=== PATIENT | female | born 1940 | race Caucasian/White ===

== ENCOUNTER 2019-10-24 12:35 | Emergency (ER) | payer MEDICARE ==
[~2019-10-24] VITALS: Ht 154.9 cm; Wt 44.5 kg
--- OUTSIDE RECORDS SUMMARY | ~2019-10-24 | XMS | Encounter Summary ---
Demographics + + + | Address | [address] | | | [place] [address] | + + + | Home Phone | | + + + | Preferred Language | Unknown | + + + | Marital Status | | + + + | Christianity Affiliation | Unknown | + + + | Race | Unknown | + + + | Ethnic Group | Unknown | + + + Author + + + | Author | [facility] | | | and [place] | + + + | Organization | [facility] | | | and [place] | + + + | Address | Unknown | + + + | Phone | Unavailable | + + + Support +------+ +---------+ + | Name | Relationship | Address | Phone | +------+ +---------+ + ECON | Unknown | | +------+ +---------+ + Care Team Providers + +------+ + | Care Splitter Tender Name | Role | Phone | + +------+ + | Keith May | PCP | | | MD | | | + +------+ + Encounter Details +--------+ + + + + | Date | Type | Department | Care Team | Description | +--------+ + + + + | 04/24/ | Imaging | [facility] | Provider, | | | 2018 | Exam | [facility] | MD [address] | | | | | IMAG[address] | [address] | | | | | [address] | [place] [address] | | | | | [place] [address] | | | | | | [phone] | | | +--------+ + + + + Social History + +-------+ +--------+------+ | Tobacco Use | Types | Packs/Day | Years | Date | | | | | Used | | + +-------+ +--------+------+ | Never Assessed | | | | | + +-------+ +--------+------+ + + + | Sex Assigned at | Date Recorded | | | | + + + | Not on file | | + + + + + + + | Job Start Date | Occupation | Industry | + + + + | Not on file | Not on file | Not on file | + + + + + + + + | Travel History | Travel Start | Travel End | + + + + + + | No recent travel history available. | + + documented as of this encounter Plan of Treatment Not on filedocumented as of this encounter Procedures + +--------+ + + + | Procedure Name | Priori | Date/Time | Associated Diagnosis | Comments | | | ty | | | | + +--------+ + + + | XR SHOULDER LEFT 2 + | Routin | 05/17/2015 | | Results for this | | VW | e | 3:20 PM | | procedure are in the | | | | PST | | results section. | + +--------+ + + + documented in this encounter Results XR Shoulder Left 2 + Vw (05/17/2015 3:20 PM PST) + + | Specimen | + + | | + + + + + | Narrative | Performed At | + + + | External films for comparison only | [facility] | | | | | No results will be in the chart. | | + + + + +---------+ + + | Performing | Address | City/State/Zipcode | Phone Number | | Organization | | | | + +---------+ + + | [facility] | | | | + +---------+ + + documented in this encounter Visit Diagnoses Not on filedocumented in this encounter"
--- OUTSIDE RECORDS SUMMARY | ~2019-10-24 | XMS | Encounter Summary ---
Demographics + + + | Address | [address] | | | [place] [address] | + + + | Home Phone | | + + + | Preferred Language | Unknown | + + + | Marital Status | | + + + | Quaker Affiliation | Unknown | + + + | Race | Unknown | + + + | Ethnic Group | Unknown | + + + Author + + + | Author | [facility] | | | and [place] | + + + | Organization | [facility] | | | and [place] | + + + | Address | Unknown | + + + | Phone | Unavailable | + + + Support +------+ +---------+ + | Name | Relationship | Address | Phone | +------+ +---------+ + ECON | Unknown | | +------+ +---------+ + Care Team Providers + +------+ + | Care Spinner Concrete Pipe Name | Role | Phone | + [...] | | | | [address] | [place] [address] | | | | | [place] [address] | | | | | | [phone] | | | +--------+ + + + [...] SHOULDER LEFT 2 + | Routin | 07/19/2011 | | Results for this | | VW | e | 5:20 PM | | procedure are in the | | | | PST | | results section. | + +--------+ + + + documented in this encounter Results XR Shoulder Left 2 + Vw (07/19/2011 5:20 PM PST) + + | Specimen | [...]
--- OUTSIDE RECORDS SUMMARY | ~2019-10-24 | XMS | Encounter Summary ---
Demographics + + + | Address | [address] | | | [place] [address] | + + + | Home Phone | | + + + | Preferred Language | Unknown | + + + | Marital Status | | + + + | Islam Affiliation | Unknown | + + + | Race | Unknown | + + + | Ethnic Group | Unknown | + + + Author + + + | Author | [facility] | | | and [place] | + + + | Organization | [facility] | | | and [place] | + + + | Address | Unknown | + + + | Phone | Unavailable | + + + Support +------+ +---------+ + | Name | Relationship | Address | Phone | +------+ +---------+ + ECON | Unknown | | +------+ +---------+ + Care Team Providers + +------+ + | Care Stockbroker Name | Role | Phone | + +------+ + | Keith May | PCP | | | MD | | | + +------+ + Reason for Referral Evaluate & Treat (Routine) +--------+ + + + + + | Status | Reason | Specialty | Diagnoses / | Referred By | Referred To | | | | | Procedures | Contact | Contact | +--------+ + + + + + | Closed | Specialty | Physical | Diagnoses | Bogdan | [facility] | | | Services | Therapy | Right | Alan | [facility] | | | Required | | rotator cuff | [place], | PHYSICAL | | | | | tear | [address] | | | | | arthropathy | [address] | [place] | | | | | | [place], | [place] | | | | | | [place] | [address] | | | | | | [address] | Phone: | | | | | | Phone: | [phone] | | | | | | [phone] | Fax: | | | | | | Fax: | [phone] | | | | | | [phone] | | +--------+ + + + + + Reason for Visit + + + | Reason | Comments | + + + | New Patient | Right shoulder onset 02/2018 | + + + Evaluate & Treat (Urgent) +--------+--------+ + + + + | Status | Reason | Specialty | Diagnoses / | Referred By | Referred To | | | | | Procedures | Contact | Contact | +--------+--------+ + + + + | Closed | | Orthopedic | Diagnoses | Lalo, | Bogdan, | | | | Surgery | Pain in | Keith | Alan | | | | | right | MD Loyd | MD Arnold | | | | | shoulder | [address] | | | | | | [address] | [address] [place] | | | | | | [place], | [place] | | | | | | [place] | [address] | | | | | | [address] | Phone: | | | | | | Phone: | [phone] | | | | | | [phone] | Fax: | | | | | | Fax: | [phone] | | | | | | [phone] | | +--------+--------+ + + + + Encounter Details +--------+---------+ + + + | Date | Type | Department | Care Team | Description | +--------+---------+ + + + | 05/13/ | Office | [facility] | Alan Mcfadden | Right rotator cuff | | 2018 | Visit | ORTHOPEDIC SURGERY | MD [address] | tear arthropathy | | | | [address] [facility] | [address] | (Primary Dx); Right | | | | [place], [place] | [place] [address] | shoulder pain, | | | | [address] | [phone] | unspecified | | | | [phone] | | chronicity; Fall, | | | | | | initial encounter | +--------+---------+ + + + Social History + +-------+ +--------+------+ | Tobacco Use | Types | Packs/Day | Years | Date | | | | | Used | | + +-------+ +--------+------+ | Never Smoker | | | | | + +-------+ +--------+------+ + +---+---+---+ | Smokeless Tobacco: | | | | | Never Used | | | | + +---+---+---+ + + +---------+ + | Alcohol Use | Drinks/Week | oz/Week | Comments | + + +---------+ + | Yes | | | | + + +---------+ + + + + | Sex Assigned at [...] + + documented as of this encounter Last Filed Vital Signs + + + + + | Vital Sign | Reading | Time Taken | Comments | + + + + + | Blood Pressure | - | - | | + + + + + | Pulse | - | - | | + + + + + | Temperature | - | - | | + + + + + | Respiratory Rate | - | - | | + + + + + | Oxygen Saturation | - | - | | + + + + + | Inhaled Oxygen | - | - | | | Concentration | | | | + + + + + | Weight | 44.9 kg (98 lb 15.8 | 05/13/2018 1:07 PM | | | | oz) | PST | | + + + + + | Height | 152.4 cm (5') | 05/13/2018 1:07 PM | | | | | PST | | + + + + + | Body Mass Index | 19.33 | 05/13/2018 1:07 PM | | | | | PST | | + + + + + documented in this encounter Patient Instructions Patient Instructions Alan Mcfadden MD - 05/13/2018 1:57 PM PSTFormatting of this note m ight be different from the original. Exercises for Shoulder Flexibility: Wall Walk Improving your flexibility can reduce pain. Stretching exercises also can help increase you r range of pain-free motion. Breathe normally when you exercise. Use smooth, fluid movements . Note:Follow any special instructions you are given. If you feel pain, stop the exercise. If the pain continues after stopping, call your healthcare provider: Stand with your shoulder [id number] from the wall. Raise your arm to shoulder level and gently walk your fingers up the wall as high as you can. Hold for a few seconds. Then walk your fingers back down. Repeat 3times. Move closer to the wall as you repeat. Build up to holding each stretch [id number]. Caution:Do this stretch only if your healthcare provider recommends it. Don t do it whe n you are first injured. Date Last Reviewed: 08/15/201719999413-8793 [employer]. [address] [place] [address], [place] [address]. All righ ts reserved. This information is not intended as a substitute for professional medical care. Always follow your healthcare professional's instructions. documented in this encounter Progress Notes Alan Mcfadden MD - 05/13/2018 1:00 PM PSTFormatting of this note might be different fro m the original. [facility] HISTORY AND PHYSICAL EXAMINATION Pt. Name/Age/: Chayo Harris 77 y.o. 1940 Primary Care Physician: Keith May Chief Complaint/Reason for Visit: New Patient (Right shoulder onset 02/2018) History of Present Illness: The patient is a pleasant 77 y.o. female who presents with a 10 week history of right shoul kami pain. Her shoulder pain worsened after a fall. She was having a bird feeder and her ri ght foot stepped into a hole. She fell down a hill. Her right shoulder hurt afterwards. S he knows that she has a chronic rotator cuff tear and has been told so in the past. 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 She is wearing a thumb sp ica splint for this. She reports she drops things all the time but she relates this to a rice nd. She additionally has some puffiness near the elbow that bothers her from time to time. With regards to her shoulder, extension and movement makes the pain worse. Heat and restin g makes her pain better. She states her pain is generally uncomfortable but gets to being a 3-4 out of 10 at its worse. Her pain has been getting better since the fall. She is able to do her normal daily activities carefully and with some limitations. She quit smoking yea rs ago. He does have a history of bilateral pulmonary emboli in the past. Past Medical History: Past Medical History: Diagnosis Date Pulmonary embolus (HCC) Past Surgical History: Procedure Laterality Date HYSTERECTOMY left knee arthroscopy debridement left knee medial meniscectomy open arthrotomy 1979 in [place] Allergies: Allergies Allergen Reactions Codeine Hives Indomethacin Hives Phenobarbital Other (See Comments) Reaction unknown Povidone Iodine Other (See Comments) Unknown Scopolamine Other (See Comments) Unknown Pregabalin Nausea And Vomiting Current Medications: Current Outpatient Prescriptions Medication Sig Dispense Refill albuterol 90 mcg/puff inhaler Inhale 2 puffs into the lungs. aspirin 81 MG tablet Take 81 mg by mouth. BIOTIN PO Take by mouth. Coenzyme Q10 (CO Q 10) 10 MG CAPS Take by mouth. DULoxetine (CYMBALTA) [address] capsule Take 60 mg by mouth. fluticasone (FLOVENT HFA) 220 mcg/puff inhaler Inhale 1 puff into the lungs. Multiple Vitamins-Minerals (WOMENS 50+ MULTI VITAMIN/MIN) TABS Take by mouth. SIMBRINZA 1-0.2 % SUSP No current facility-administered medications for this visit. Family History: History reviewed. No pertinent family history. Social History: Social History Social History Marital status: Spouse name: N/A Number of children: N/A Years of education: N/A Occupational History Not on file. Social History Main Topics Smoking status: Never Smoker Smokeless tobacco: Never Used Alcohol use Yes Drug use: Yes Types: Marijuana Comment: CBD Sexual activity: Not on file Other Topics Concern Not on file Social History Narrative No narrative on file Review of Systems All of these are negative unless otherwise marked Eyes: [] Double vision [x] Glasses/contacts [x] Failing vision Respiratory: [] Asthma/Wheezing [] Pneumonia [x] Night sweats [] Shortness of breath [] Chronic cough [] Coughing up blood [] Exposure to tuberculosis Cardiovascular: [] Heart Problems [] Hypertension [] Heart murmur [] Palpitations [] Rheumatic fever [] Phlebitis [] Chest pain [] Ankle swelling [x] Leg cramps [] Raci ng heart [] Skipping beats [x] Blood clots Urinary Tract: [] Painful urination [] Kidney Stones [] Any urine leakage [] Weak urine stream [] Night urination [] Urine infections [] Bedwetting [] Blood in urine Ear/Nose/Throat: [] Frequent Colds [] Sinus Disease [] Nose obstruction [] Sneezing Spells [] Change in taste [] Artificial teeth [] Ears ringing [] Ear pain [] Hearing loss [] Teeth problems [] Hoarseness [] Neck swelling [] Sore throat [] Congestion [] Nosebleeds [] Nasal allergies Gastrointestinal: [] Abdominal pain [] Heartburn [] Blood from rectum [] Colitis [] Gallbladder problems [] Troubl e swallowing [] Bloated stomach [] Change in stools [] Vomiting blood [] Nausea [] Hemorrhoids [] Jaundice [ ] Hepatitis [] Diarrhea [] Constipation [] Diverticulitis Musculoskeletal: [] Physical handicaps [x] Back or shoulder pain []Rheumatoid disease [x] Osteoarthritis [x] Joint pain [] Joint swelling []Gout [] Leg cramps at night Skin: [] Skin rashes [] Itching/Burning [] Skin bruises easil y [] Artificial tanning [] Skin cancer [x] Hair loss [] Changes in moles Psychiatric: [x] Depression [] Suicidal thoughts [] Sleep pattern changes [] Appetite changes [] Recent counseling [] Nervousness/anxiety [] Physical violence [] Marital problems Neurological: [x] Headaches [] Seizures [] Stroke/TIA [] Faintness [] Tremors [x] Numbness [] Dizziness [x] Changes in handwriting [] Memory loss [x] Shooting pains Endocrine: [] Thyroid [] Diabetes Systemic: []Weight loss/gain (over 10 lbs) []Fever/chills []Fatigue [] Sleeping Difficulties [] Speech change [] Voice change Admission Weight: Weight: 44.9 kg (98 lb 15.8 oz) BMI: Body mass index is 19.33 kg/m . Physical Examination: Ht 1.524 m (5') | Wt 44.9 kg (98 lb 15.8 oz) | BMI 19.33 kg/m General: Alert, oriented, no acute distress HEENT: Normocephalic, atraumatic Cardiovascular: Regular rate and rhythm Respiratory: Breathing normally at a regular rate Ortho Exam Right Shoulder Exam Right Left Forward Flexion 140 150 Abduction 100 120 External Rotation 10 30 Internal rotation L1 T8 Tender to Palpation: globally External Rotation Strength 3/5 Internal Rotation Strength 3/5 Hawkin's Positive Neer's Positive Nolan's Positive Radial pulse 2+. Sensation intact to light touch in the first dorsal webspace, and the pads of the small and index fingers. Able to flex and extend the thumb at the interphalangeal jessica int, make an "ok" sign, adduct and abduct the fingers, and oppose the thumb to the small fin darwin. Diagnostic Studies: Imaging 2 views of the right shoulder obtained today demonstrate rotator cuff tear arthropathy. Th e patient has a moderate inferior humeral head osteophyte. The humeral head is proximally m igrated. It is articulating with the acromion. There is acetabularization of the acromion. MRI of the shoulder dated 03/31/2018 reviewed. The patient has grade 4 fatty atrophy of th e supra spinatus, grade 3 fatty atrophy of the subscapularis, at least grade 2 atrophy of th e infraspinous. Labs- No results found for: NA, K, CL, CO2, ANIONGAP, GLU, BUN, CREA, GFRNONAA, CALCIUM, ALBUMIN, BILITOT, TOTALPROTEIN, AST, ALT, ALKPHOS, WBC, HGB, HCT, MCV, LABPLAT, PLT, ESR, CRP, LIPAS E, AMYLASE, PT, INR Assessment and Plan: 1. Right rotator cuff tear arthropathy 2. Right shoulder pain, unspecified chronicity XR Shoulder Right 2 + Vw 3. Fall, initial encounter The patient is a pleasant 77 y.o. female who presents with right rotator cuff tear arthropa thy. Treatment options were discussed with the patient including non-operative treatment mod alities. Considering the nature of the patient's condition, decision was made to proceed wit h physical therapy. Her pain likely represents an acute exacerbation of her chronic arthrit is and rotator cuff tear. I think physical therapy would give her a decent chance at recove ry of function to her prefall levels. The next treatment step would likely be an injection. She is not interested in surgery. If she were to desire surgery, the correct surgery in m y mind would be a reverse total shoulder replacement. Follow-up: Return in about 2 months (around 07/13/2018). with no x-ray Portions of this report were transcribed using voice recognition software. Every effort wa s made to ensure accuracy; however, inadvertent computerized ledge man errors may be pre sent. I appreciate the opportunity to help with the management of this patient. Alan Mcfadden MD [facility] umented in this encounter Plan of Treatment + + +--------+ + + | Name | Type | Priori | Associated Diagnoses | Order Schedule | | | | ty | | | + + +--------+ + + | Physical Therapy - | Outpatient | Routin | Right rotator cuff | Ordered: 05/13/2018 | | Ambulatory Referral | Referral | e | tear arthropathy | | + + +--------+ + + documented as of this encounter Visit Diagnoses + + | Diagnosis | + + | Right rotator cuff tear arthropathy - Primary | + + | Right shoulder pain, unspecified chronicity | + + | Fall, initial encounter | + + documented in this encounter
--- OUTSIDE RECORDS SUMMARY | ~2019-10-24 | XMS | Encounter Summary ---
Demographics + + + | Address | [address] | | | [place] [address] | + + + | Home Phone | | + + + | Preferred Language | Unknown | + + + | Marital Status | | + + + | Spiritism Affiliation | Unknown | + + + | Race | Unknown | + + + | Ethnic Group | Unknown | + + + Author + + + | Author | [facility] | | | and [place] | + + + | Organization | [facility] | | | and [place] | + + + | Address | Unknown | + + + | Phone | Unavailable | + + + Support +------+ +---------+ + | Name | Relationship | Address | Phone | +------+ +---------+ + ECON | Unknown | | +------+ +---------+ + Care Team Providers + +------+ + | Care Preventive Medicine Physician Name | Role | Phone | + +------+ + | Keith May | PCP | | | MD | | | + +------+ + Encounter Details +--------+ + + + + | Date | Type | Department | Care Team | Description | +--------+ + + + + | 02/24/ | Hospital | [facility] | Conversion | Pain | | 2018 | Encounter | CONVERSION [address] | Transaction, | | | | | [place] | Provider Unknown | | | | | [place] | [phone] | | | | | [address] | | | | | | [phone] | | | +--------+ + + + [...] + +--------+ + + + | XR WRIST RIGHT 3 + | Routin | 10/30/2017 | | Results for this | | VW | e | 1:56 AM | | procedure are in the | | | | PDT | | results section. | + +--------+ + + + documented in this encounter Results XR Wrist Right 3 + Vw (10/30/2017 1:56 AM PDT) + + | Specimen | + + | | + + + + + | Narrative | Performed At | + + + | This is a non-reportable procedure without a radiologist report and | | | is used for image storage only | | + + + + + | Procedure Note | + + | UlicesGuillermo Ivan - 01/28/2019 8:34 AM PDT This is a non-reportable procedure | | without a radiologist report and isused for image storage only | + + documented in this encounter Visit Diagnoses + + | Diagnosis | + + | Pain Generalized pain | + + documented in this encounter"
--- OUTSIDE RECORDS SUMMARY | ~2019-10-24 | XMS | Encounter Summary ---
Demographics + + + | Address | [address] | | | [place] [address] | + + + | Home Phone | | + + + | Preferred Language | Unknown | + + + | Marital Status | | + + + | Hoahaoism Affiliation | Unknown | + + + | Race | Unknown | + + + | Ethnic Group | Unknown | + + + Author + + + | Author | [facility] | | | and [place] | + + + | Organization | [facility] | | | and [place] | + + + | Address | Unknown | + + + | Phone | Unavailable | + + + Support +------+ +---------+ + | Name | Relationship | Address | Phone | +------+ +---------+ + ECON | Unknown | | +------+ +---------+ + Care Team Providers + +------+ + | Care Personnel Monitor Name | Role | Phone | + +------+ + | Keith May | PCP | | | MD | | | + +------+ + Encounter Details +--------+ + + + + | Date | Type | Department | Care Team | Description | +--------+ + + + + | 02/24/ | Hospital | [facility] | Conversion | Pain | | 2018 | Encounter | CONVERSION [address] | Transaction, | | | | | [facility] | Provider Unknown | | | | | [place] | [phone] | | | | | [address] | | | | | | [phone] | | | +--------+ + + + [...] + +--------+ + + + | XR HAND LEFT 3 + VW | Routin | 10/30/2017 | | Results for this | | | e | 1:56 AM | | procedure are in the | | | | PDT | | results section. | + +--------+ + + + documented in this encounter Results XR Hand Left 3 + Vw (10/30/2017 1:56 AM PDT) [...]
--- OUTSIDE RECORDS SUMMARY | ~2019-10-24 | XMS | Encounter Summary ---
Demographics + + + | Address | [address] | | | [place] [address] | + + + | Home Phone | | + + + | Preferred Language | Unknown | + + + | Marital Status | | + + + | Buddhism Affiliation | Unknown | + + + | Race | Unknown | + + + | Ethnic Group | Unknown | + + + Author + + + | Author | [facility] | | | and [place] | + + + | Organization | [facility] | | | and [place] | + + + | Address | Unknown | + + + | Phone | Unavailable | + + + Support +------+ +---------+ + | Name | Relationship | Address | Phone | +------+ +---------+ + ECON | Unknown | | +------+ +---------+ + Care Team Providers + +------+ + | Care Property Analyst Name | Role | Phone | + +------+ + | Keith May | PCP | | | MD | | | + +------+ + Encounter Details +--------+ + + + + | Date | Type | Department | Care Team | Description | +--------+ + + + + | 02/24/ | Hospital | [facility] | Conversion | Pain | | 2018 | Encounter | CONVERSION DEP [address] | Transaction, | | | | | [facility] | Provider Unknown | | | | | [place] | [phone] | | | | | [address] | | | | | | [phone] | | | +--------+ + + + [...] +--------+ + + + | XR WRIST LEFT 3 + VW | Routin | 10/30/2017 | | Results for this | | | e | 1:57 AM | | procedure are in the | | | | PDT | | results section. | + +--------+ + + + documented in this encounter Results XR Wrist Left 3 + Vw (10/30/2017 1:57 AM PDT) + + | Specimen | + + | | + + + + + | Narrative | Performed At | + + + | This is a non-reportable procedure without a radiologist report and | | | is used for image storage only | | + + + + + | Procedure Note | + + | Guillermo Elena Ivan - 01/28/2019 8:34 AM PDT This is a non-reportable procedure | | without a radiologist report and isused for image storage only | + + documented in this encounter Visit Diagnoses + + | Diagnosis | + + | Pain Generalized pain | + + documented in this encounter"
--- OUTSIDE RECORDS SUMMARY | ~2019-10-24 | XMS | Encounter Summary ---
Demographics + + + | Address | [address] | | | [place] [address] | + + + | Home Phone | | + + + | Preferred Language | Unknown | + + + | Marital Status | | + + + | Sabianism Affiliation | Unknown | + + + | Race | Unknown | + + + | Ethnic Group | Unknown | + + + Author + + + | Author | [facility] | | | and [place] | + + + | Organization | [facility] | | | and [place] | + + + | Address | Unknown | + + + | Phone | Unavailable | + + + Support +------+ +---------+ + | Name | Relationship | Address | Phone | +------+ +---------+ + ECON | Unknown | | +------+ +---------+ + Care Team Providers + +------+ + | Care Manufacturing Quality Manager Name | Role | Phone | + [...] | | | | [address] | [place] [address] | | | | | [place] [address] | | | | | | [phone] | | | +--------+ + + + [...] WRIST RIGHT 3 + | Routin | 03/09/2016 | | Results for this | | VW | e | 4:25 PM | | procedure are in the | | | | PDT | | results section. | + +--------+ + + + documented in this encounter Results XR Wrist Right 3 + Vw (03/09/2016 4:25 PM PDT) + + | Specimen | + [...]
--- OUTSIDE RECORDS SUMMARY | ~2019-10-24 | XMS | Encounter Summary ---
Demographics + + + | Address | [address] | | | [place] [address] | + + + | Home Phone | | + + + | Preferred Language | Unknown | + + + | Marital Status | | + + + | Holiness Affiliation | Unknown | + + + | Race | Unknown | + + + | Ethnic Group | Unknown | + + + Author + + + | Author | [facility] | | | and [place] | + + + | Organization | [facility] | | | and [place] | + + + | Address | Unknown | + + + | Phone | Unavailable | + + + Support +------+ +---------+ + | Name | Relationship | Address | Phone | +------+ +---------+ + ECON | Unknown | | +------+ +---------+ + Care Team Providers + +------+ + | Care Sales Ambassador Name | Role | Phone | + +------+ + | Keith May | PCP | | | MD | | | + +------+ + Encounter Details +--------+ + + + + | Date | Type | Department | Care Team | Description | +--------+ + + + + | 02/24/ | Hospital | [facility] | Conversion | Pain | | 2018 | Encounter | CONVERSION DEP [address] | Transaction, | | | | | [facility] | Provider Unknown | | | | | [place] | [phone] | | | | | [address] | | | | | | [phone] | | | +--------+ + + + [...] +--------+ + + + | XR HAND RIGHT 3 + VW | Routin | 10/30/2017 | | Results for this | | | e | 1:56 AM | | procedure are in the | | | | PDT | | results section. | + +--------+ + + + documented in this encounter Results XR Hand Right 3 + Vw (10/30/2017 1:56 AM [...]
--- OUTSIDE RECORDS SUMMARY | ~2019-10-24 | XMS | Clinical Summary ---
Demographics + + + | Address | [address] | | | [place] [address] | + + + | Home Phone | | + + + | Preferred Language | Unknown | + + + | Marital Status | Unknown | + + + | Congregation Affiliation | Unknown | + + + | Race | Unknown | + + + | Ethnic Group | Unknown | + + + Author + + + | Author | [employer] (Historical as of | | | 01-31-19) | + + + | Organization | [facility] (Historical as of | | | 01-31-19) | + + + | Address | Unknown | + + + | Phone | Unavailable | + + + Support + + +---------+ + | Name | Relationship | Address | Phone | + + +---------+ + | Contact,No | ECON | Unknown | | + + +---------+ + Care Team Providers + +------+ + | Care Quality Control Inspector Name | Role | Phone | + +------+ + | Kieth May MD | PP | | + +------+ + Allergies + + + + + + | Active Allergy | Reactions | Severity | Noted | Comments | | | | | Date | | + + + + + + | Codeine | Hives | High | 01/31/20 | | | | | | 18 | | + + + + + + | Indomethacin | Hives | High | 01/31/20 | | | | | | 18 | | + + + + + + | Povidone Iodine | Other (See Comments) | Medium | 01/31/20 | Unknown | | | | | 18 | | + + + + + + | Pregabalin | Nausea and Vomiting | Low | 01/31/20 | | | | | | 18 | | + + + + + + | Phenobarbital | Other (See Comments) | Medium | 01/31/20 | Reaction unknown | | | | | 18 | | + + + + + + | Scopolamine | Other (See Comments) | Medium | 01/31/20 | Unknown | | | | | 18 | | + + + + + + Current Medications + + +-------+---------+------+------+-------+ | Prescription | Sig. | Disp. | Refills | Star | End | Statu | | | | | | t | Date | s | | | | | | Date | | | + + +-------+---------+------+------+-------+ | DULoxetine | Take 60 mg by mouth | | | | | Activ | | (CYMBALTA) [address] | daily. | | | | | e | | capsule | | | | | | | + + +-------+---------+------+------+-------+ | aspirin 81 MG | Take 81 mg by mouth | | | | | Activ | | tablet | daily. | | | | | e | + + +-------+---------+------+------+-------+ | METOPROLOL | Take by mouth. | | | | | Activ | | SUCCINATE ER PO | | | | | | e | + + +-------+---------+------+------+-------+ | albuterol | Inhale 2 puffs into | | | | | Activ | | (PROVENTIL | the lungs every 4 | | | | | e | | HFA;VENTOLIN HFA) | (four) hours as | | | | | | | 108 (90 Base) | needed for Wheezing. | | | | | | | MCG/ACT inhaler | | | | | | | + + +-------+---------+------+------+-------+ | Coenzyme Q10 (CO Q | Take by mouth. | | | | | Activ | | 10) 10 MG CAPS | | | | | | e | + + +-------+---------+------+------+-------+ | fluticasone | Inhale 1 puff into | | | | | Activ | | (FLOVENT HFA) 220 | the lungs 2 (two) | | | | | e | | MCG/ACT inhaler | times daily. Rinse | | | | | | | | mouth after use | | | | | | + + +-------+---------+------+------+-------+ Active Problems No known active problems Immunizations + + + + | Name | Dates Previously Given | Next Due | + + + + | Zoster (Live) | 08/19/2014 | | + + + + Social History + +-------+ +--------+------+ | Tobacco Use | Types | Packs/Day | Years | Date | | | | | Used | | + +-------+ +--------+------+ | Former Smoker | | | | | + +-------+ +--------+------+ + +---+---+---+ | Smokeless Tobacco: | | | | | Never Used | | | | + +---+---+---+ + + +---------+ + | Alcohol Use | Drinks/We | oz/Week | Comments | | | ek | | | + + +---------+ + | No | | | | + + +---------+ + + + + | Sex Assigned at | Date Recorded | | | | + + + | Not on file | | + + + Last Filed Vital Signs + + + + | Vital Sign | Reading | Time Taken | + + + + | Blood Pressure | 110/58 | 01/30/2018 1:09 PM PDT | + + + + | Pulse | 67 | 03/20/2018 9:37 AM PDT | + + + + | Temperature | - | - | + + + + | Respiratory Rate | - | - | + + + + | Oxygen Saturation | 100% | 03/20/2018 9:37 AM PDT | + + + + | Inhaled Oxygen | - | - | | Concentration | | | + + + + | Weight | 44.9 kg (99 lb) | 03/20/2018 9:37 AM PDT | + + + + | Height | 152.4 cm (5') | 03/20/2018 9:37 AM PDT | + + + + | Body Mass Index | 19.33 | 03/20/2018 9:37 AM PDT | + + + + Plan of Treatment + + + + + | Health Maintenance | Due Date | Last Done | Comments | + + + + + | Vaccine: | | | | | Dtap/Tdap/Td (1 - | 9 | | | | Tdap) | | | | + + + + + | DEXA SCAN SCREENING | | | | | | 5 | | | + + + + + | Vaccine: | | | | | Pneumococcal 65+ | 5 | | | | Low/Medium Risk (1 | | | | | of 2 - PCV13) | | | | + + + + + | Vaccine: Zoster (2 | | 08/19/2014 | | | of 3) | 5 | | | + + + + + | Vaccine: Influenza | | | | | (Season Ended) | 0 | | | + + + + + Results Not on filefrom Last 3 Months Insurance + +--------+ +--------+-------+---------+ | Payer | Benefi | Subscriber | Type | Phone | Address | | | t Plan | ID | | | | | | / | | | | | | | Group | | | | | + +--------+ +--------+-------+---------+ | [place] [id number] | Medica | | | | | MODA | | re | | | | | | | | | | | | | | | | | | | | | | | | | | | | | | | | | | | | | | | | [place] - | | | | | | | [place] | | | | | + +--------+ +--------+-------+---------+ + +--------+ +--------+ + + | Guarantor Name | Accoun | Relation to | Date | Phone | Billing Address | | | t Type | Patient | of | | | | | | | | | | + +--------+ +--------+ + + | CHAYO CASTILLO | Person | Self [birth year] | Home: | [address] | | | al/Fam | | 1941 | [phone] [place] | | | leif | | | [phone] | [address] | + +--------+ +--------+ + +"
--- OUTSIDE RECORDS SUMMARY | ~2019-10-24 | XMS | Clinical Summary ---
Demographics + + + | Address | [address] | | | [place] [address] | + + + | Home Phone | | + + + | Preferred Language | Unknown | + + + | Marital Status | Unknown | + + + | Episcopal Affiliation | Unknown | + + + | Race | Unknown | + + + | Ethnic Group | Unknown | + + + Author + + + | Author | [employer] [facility] (Historical as of | | | 01-31-19) | + + + | Organization | [facility] [employer] (Historical as of | | | 01-31-19) [...] Team Providers + +------+ + | Care Solution Consultant Name | Role | Phone | + +------+ + | Keith May MD | PP | | + [...] [place] - [place] | [place] - | [id number] | Medica | | | | | [...] | Self | [birth year] | Home: | [address] | | | al/Fam | | 1941 | [phone] [place] | | | leif | | | [phone] | [address] | + +--------+ +--------+ + +"
--- OUTSIDE RECORDS SUMMARY | ~2019-10-24 | XMS | Encounter Summary ---
Demographics + + + | Address | [address] | | | [place] [address] | + + + | Home Phone | | + + + | Preferred Language | Unknown | + + + | Marital Status | | + + + | Yarsani Affiliation | Unknown | + + + | Race | Unknown | + + + | Ethnic Group | Unknown | + + + Author + + + | Author | [facility] | | | and [place] | + + + | Organization | [facility] | | | and [place] | + + + | Address | Unknown | + + + | Phone | Unavailable | + + + Support +------+ +---------+ + | Name | Relationship | Address | Phone | +------+ +---------+ + ECON | Unknown | | +------+ +---------+ + Care Team Providers + +------+ + | Care Brand Marketing Manager Name | Role | Phone | + +------+ + | Keith May | PCP | | | MD | | | + +------+ + Encounter Details +--------+ + + + + | Date | Type | Department | Care Team | Description | +--------+ + + + + | 01/30/ | Orders Only | [facility] | Casey Mujica, | | | 2017 | | [address] | [address] | | | | | [address] | [place] [address] | | | | | [place], [place] | [phone] | | | | | [address] | | | | | | [phone] | | | +--------+ + + + [...] RIGHT 3 + VW | Routin | 01/30/2018 | | Results for this | | | e | 1:34 PM | | procedure are in the | | | | PDT | | results section. 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 There is also significant arthritis at the metacarpophalangeal | | | joints of all digits as well as at the DIP joints of the index and | | | middle finger. calcification noted at the TFCC | | + + + + + + | Narrative | Performed At | + + + | INDICATION: Right hand pain COMPARISON: None TECHNIQUE: | | | Multiple views of the right hand FINDINGS: Right hand shows a | | | severe arthritis at the CMC joint of the right thumb with a metallic | | | body just anterior to the CMC and STT joint. There is also | | | significant arthritis at the metacarpophalangeal joints of all digits | | | as well as at the DIP joints of the index and middle finger. 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 | | There is also significant arthritis at the metacarpophalangeal joints of | | all digits as well as at the DIP joints of the index and middle finger. 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 | | There is also significant arthritis at the metacarpophalangeal joints of | | all digits as well as at the DIP joints of the index and middle finger. | | calcification noted at the TFCC | | | | | | | + + documented in this encounter Visit Diagnoses Not on filedocumented in this encounter"
--- OUTSIDE RECORDS SUMMARY | ~2019-10-24 | XMS | Encounter Summary ---
Demographics + + + | Address | [address] | | | [place] [address] | + + + | Home Phone | | + + + | Preferred Language | Unknown | + + + | Marital Status | | + + + | Pentecostalism Affiliation | Unknown | + + + | Race | Unknown | + + + | Ethnic Group | Unknown | + + + Author + + + | Author | [facility] | | | and [place] | + + + | Organization | [facility] | | | and [place] | + + + | Address | Unknown | + + + | Phone | Unavailable | + + + Support +------+ +---------+ + | Name | Relationship | Address | Phone | +------+ +---------+ + ECON | Unknown | | +------+ +---------+ + Care Team Providers + +------+ + | Care Pipe Testing Technician Name | Role | Phone | + +------+ + | Keith May | PCP | | | MD | | | + +------+ + Encounter Details +--------+ + + + + | Date | Type | Department | Care Team | Description | +--------+ + + + + | 05/13/ | Hospital | [facility] | Alan Mcfadden | Right shoulder pain, | | 2017 | Encounter | [facility] | [address] | unspecified | | | | [address] [place] | [address] [place] | chronicity | | | | [place], [place] | [place] [address] | | | | | [address] | [phone] | | | | | [phone] | | | +--------+ + + + [...] + + documented as of this encounter Medications at Time of Discharge + + + +---------+ + + | Medication | Sig | Dispensed | Refills | Start | End Date | | | | | | Date | | + + + +---------+ + + | albuterol 90 | Inhale 2 puffs into | | 0 | | | | mcg/puff inhaler | the lungs. | | | | | + + + +---------+ + + | aspirin 81 MG | Take 81 mg by mouth. | | 0 | | | | tablet | | | | | | + + + +---------+ + + | BIOTIN PO | Take by mouth. | | 0 | | | + + + +---------+ + + | Coenzyme Q10 (CO Q | Take by mouth. | | 0 | | | | 10) 10 MG CAPS | | | | | | + + + +---------+ + + | DULoxetine | Take 60 mg by mouth. | | 0 | | | | (CYMBALTA) [address] | | | | | | | capsule | | | | | | + + + +---------+ + + | fluticasone | Inhale 1 puff into | | 0 | | | | (FLOVENT HFA) 220 | the lungs. | | | | | | mcg/puff inhaler | | | | | | + + + +---------+ + + | Multiple | Take by mouth. | | 0 | | | | Vitamins-Minerals | | | | | | | (WOMENS 50+ MULTI | | | | | | | VITAMIN/MIN) TABS | | | | | | + + + +---------+ + + | SIMBRINZA 1-0.2 % | | | 0 | 03/18/20 | | | SUSP | | | | 18 | | + + + +---------+ + + documented as of this encounter Plan of Treatment Not on filedocumented as of this encounter Procedures + +--------+ + + + | Procedure Name | Priori | Date/Time | Associated Diagnosis | Comments | | | ty | | | | + +--------+ + + + | XR SHOULDER RIGHT 2 | Routin | 05/13/2018 | Right shoulder | Results for this | | + VW | e | 1:00 PM | pain, unspecified | procedure are in the | | | | PST | chronicity | results section. | + +--------+ + + + documented in this encounter Results XR Shoulder Right 2 + Vw (05/13/2018 1:00 PM PST) + + | Specimen | + + | | + + + + + | Narrative | Performed At | + + + | CLINICAL INFORMATION: RIGHT SHOULDER PAIN. COMPARISON: | [facility] | | Radiograph dated 03/20/2018 and MRI 03/31/2018. FINDINGS: 2 views | | | of the right shoulder. No acute fracture or dislocation. Mild | | | chronic humeral joint space narrowing with inferior humeral head | | | osteophyte formation. Superior position of the humeral head with | | | associated severe narrowing of the subacromial space consistent with | | | chronic rotator cuff tear. Moderate to severe AC joint arthrosis. | | | IMPRESSION - Superior position of the humeral head and narrowing | | | of the subacromial space consistent with chronic rotator cuff tear. | | | Mild glenohumeral and moderate to severe acromioclavicular | | | degenerative changes. Dictated and Signed by: Vinod Vences MD | | | Electronically signed: 05/13/2018 1:52 PM | | + + + + + | Procedure Note | + + | Ulices, Rad Results In - 05/13/2018 1:56 PM PST CLINICAL INFORMATION: RIGHT SHOULDER | | PAIN.COMPARISON: Radiograph dated 03/20/2018 and MRI 03/31/2018.FINDINGS: 2 views of the | | right shoulder.No acute fracture or dislocation. Mild chronic humeral joint space | | narrowingwith inferior humeral head osteophyte formation. Superior position of | | thehumeral head with associated severe narrowing of the subacromial spaceconsistent with | | chronic rotator cuff tear. Moderate to severe AC jointarthrosis.IMPRESSION - Superior | | position of the humeral head and narrowing of the subacromial spaceconsistent with | | chronic rotator cuff tear.Mild glenohumeral and moderate to severe acromioclavicular | | degenerative changes.Dictated and Signed by: Vinod Vences MD Electronically signed: | | 05/13/2018 1:52 PM | |consistent with chronic rotator cuff tear. Moderate to severe AC joint | |arthrosis. | | | |IMPRESSION - | |Superior position of the humeral head and narrowing of the subacromial space | |consistent with chronic rotator cuff tear. | | | |Mild glenohumeral and moderate to severe acromioclavicular degenerative changes. | | | |Dictated and Signed by: Vinod Vences MD | | Electronically signed: 05/13/2018 1:52 PM | + + + +---------+ + + | Performing | Address | City/State[place] [facility] | Phone Number | | Organization | | | | + +---------+ + + | [facility] | | | | + +---------+ + + documented in this encounter Visit Diagnoses + + | Diagnosis | + + | Right shoulder pain, unspecified chronicity | + + documented in this encounter"
--- OUTSIDE RECORDS SUMMARY | ~2019-10-24 | XMS | Encounter Summary ---
Demographics + + + | Address | [address] | | | [place] [address] | + + + | Home Phone | | + + + | Preferred Language | Unknown | + + + | Marital Status | | + + + | Moravian Affiliation | Unknown | + + + | Race | Unknown | + + + | Ethnic Group | Unknown | + + + Author + + + | Author | [facility] | | | and [place] | + + + | Organization | [facility] | | | and [place] | + + + | Address | Unknown | + + + | Phone | Unavailable | + + + Support +------+ +---------+ + | Name | Relationship | Address | Phone | +------+ +---------+ + ECON | Unknown | | +------+ +---------+ + Care Team Providers + +------+ + | Care Chemistry Associate Name | Role | Phone | + [...] | | | | [address] | [place] [address] | | | | | [place] [address] | | | | | | [phone] | | | +--------+ + + + [...]
--- OUTSIDE RECORDS SUMMARY | ~2019-10-24 | XMS | Encounter Summary ---
Demographics + + + | Address | [address] | | | [place] [address] | + + + | Home Phone | | + + + | Preferred Language | Unknown | + + + | Marital Status | | + + + | Denominational Affiliation | Unknown | + + + | Race | Unknown | + + + | Ethnic Group | Unknown | + + + Author + + + | Author | [facility] | | | and [place] | + + + | Organization | [facility] | | | and [place] | + + + | Address | Unknown | + + + | Phone | Unavailable | + + + Support +------+ +---------+ + | Name | Relationship | Address | Phone | +------+ +---------+ + ECON | Unknown | | +------+ +---------+ + Care Team Providers + +------+ + | Care Chain Carrier Name | Role | Phone | + [...] | | | | [address] | [place] [address] | | | | | [place], [place] | [phone] | | | | | [address] | | | | | | [phone] | | | +--------+ + + + [...]
--- OUTSIDE RECORDS SUMMARY | ~2019-10-24 | XMS | Encounter Summary ---
Demographics + + + | Address | [address] | | | [place] [address] | + + + | Home Phone | | + + + | Preferred Language | Unknown | + + + | Marital Status | | + + + | Methodist Affiliation | Unknown | + + + | Race | Unknown | + + + | Ethnic Group | Unknown | + + + Author + + + | Author | [facility] | | | and [place] | + + + | Organization | [facility] | | | and [place] | + + + | Address | Unknown | + + + | Phone | Unavailable | + + + Support +------+ +---------+ + | Name | Relationship | Address | Phone | +------+ +---------+ + ECON | Unknown | | +------+ +---------+ + Care Team Providers + +------+ + | Care Plant Breeder Scientist Name | Role | Phone | + +------+ + | Keith May | PCP | | | MD | | | + +------+ + Encounter Details +--------+ + + + + | Date | Type | Department | Care Team | Description | +--------+ + + + + | 03/20/ | Orders Only | [facility] | Casey Mujica, | | | 2017 | | [address] | [address] | | | | | [address] | [place] [address] | | | | | [place], [place] | [phone] | | | | | [address] | | | | | | [phone] | | | +--------+ + + + [...] XR SHOULDER RIGHT 2 | Routin | 03/20/2018 | | Results for this | | + VW | e | 9:58 AM | | procedure are in the | | | | PDT | | results section. | + +--------+ + + + documented in this encounter Results XR Shoulder Right 2 + Vw (03/20/2018 9:58 AM PDT) + + | Specimen | + + | | + + + + + | Impressions | Performed At | + + + | Right shoulder shows superior migration of the humeral head with | | | the possibility of a small nondisplaced greater tuberosity fracture. | | | | | + + + + + + | Narrative | Performed At | + + + | INDICATION: Right shoulder pain COMPARISON: None | | | TECHNIQUE: Multiple views of the right shoulder FINDINGS: Right | | | shoulder shows superior migration of the humeral head with the | | | possibility of a small nondisplaced greater tuberosity fracture. No | | | signs of dislocation and no signs of clavicle fracture noted on these | | | films. Mild ac joint arthritis | | + + + + + | Procedure Note | + + | Guillermo Elena Ivan - 02/05/2019 4:16 PM PDT | | INDICATION: Right shoulder pain | | | | COMPARISON: None | | | | TECHNIQUE: Multiple views of the right shoulder | | | | FINDINGS: Right shoulder shows superior migration of the humeral head with | | the possibility of a small nondisplaced greater tuberosity fracture. No | | signs of dislocation and no signs of clavicle fracture noted on these | | films. Mild ac joint arthritis | | | | IMPRESSION: | | Right shoulder shows superior migration of the humeral head | | with the possibility of a small nondisplaced greater tuberosity fracture. | | | | | + + documented in this encounter Visit Diagnoses Not on filedocumented in this encounter"
--- OUTSIDE RECORDS SUMMARY | ~2019-10-24 | XMS | Encounter Summary ---
Demographics + + + | Address | [address] | | | [place] [address] | + + + | Home Phone | | + + + | Preferred Language | Unknown | + + + | Marital Status | | + + + | Orthodox Affiliation | Unknown | + + + | Race | Unknown | + + + | Ethnic Group | Unknown | + + + Author + + + | Author | [facility] | | | and [place] | + + + | Organization | [facility] | | | and [place] | + + + | Address | Unknown | + + + | Phone | Unavailable | + + + Support +------+ +---------+ + | Name | Relationship | Address | Phone | +------+ +---------+ + ECON | Unknown | | +------+ +---------+ + Care Team Providers + +------+ + | Care Social Service Director Name | Role | Phone | + +------+ + | Keith May | PCP | | | MD | | | + +------+ + Encounter Details +--------+ + + + + | Date | Type | Department | Care Team | Description | +--------+ + + + + | 04/03/ | Hospital | [facility] | Conversion | Pain | | 2018 | Encounter | CONVERSION DEP [address] | Transaction, | | | | | [facility] | Provider Unknown | | | | | [place] | [phone] | | | | | [address] | | | | | | [phone] | | | +--------+ + + + [...] encounter Medications at Time of Discharge + +-----+ +---------+ + + | Medication | Sig | Dispensed | Refills | Start | End Date | | | | | | Date | | + +-----+ +---------+ + + | SIMBRINZA 1-0.2 % | | | 0 | 03/18/20 | | | SUSP | | | | 18 | | + +-----+ +---------+ + + documented as of this encounter Plan of Treatment Not on filedocumented as of this encounter Procedures + +--------+ + + + | Procedure Name | Priori | Date/Time | Associated Diagnosis | Comments | | | ty | | | | + +--------+ + + + | MRI SHOULDER RIGHT | Routin | 03/31/2018 | | Results for this | | WO CONTRAST | e | 10:48 PM | | procedure are in the | | | | PDT | | results section. | + +--------+ + + + documented in this encounter Results MRI Shoulder Right wo Contrast (03/31/2018 10:48 PM PDT) + + | Specimen | + + | | + + + + + | Narrative | Performed At | + + + | This is a non-reportable procedure without a radiologist report and | | | is used for image storage only | | + + + + + | Procedure Note | + + | Guillermo Elena - 01/28/2019 8:34 AM PDT This is a non-reportable procedure | | without a radiologist report and isused for image storage only | + + documented in this encounter Visit Diagnoses + + | Diagnosis | + + | Pain Generalized pain | + + documented in this encounter"
--- OUTSIDE RECORDS SUMMARY | ~2019-10-24 | XMS | Encounter Summary ---
Demographics + + + | Address | [address] | | | [place] [address] | + + + | Home Phone | | + + + | Preferred Language | Unknown | + + + | Marital Status | | + + + | Gnosticism Affiliation | Unknown | + + + | Race | Unknown | + + + | Ethnic Group | Unknown | + + + Author + + + | Author | [facility] | | | and [place] | + + + | Organization | [facility] | | | and [place] | + + + | Address | Unknown | + + + | Phone | Unavailable | + + + Support +------+ +---------+ + | Name | Relationship | Address | Phone | +------+ +---------+ + ECON | Unknown | | +------+ +---------+ + Care Team Providers + +------+ + | Care Brake Repair Supervisor Name | Role | Phone | + [...] | | | | [address] | [place] [address] | | | | | [place], [place] | [phone] | | | | | [address] | | | | | | [phone] | | | +--------+ + + + [...]
--- OUTSIDE RECORDS SUMMARY | ~2019-10-24 | XMS | Encounter Summary ---
Demographics + + + | Address | [address] | | | [place] [address] | + + + | Home Phone | | + + + | Preferred Language | Unknown | + + + | Marital Status | | + + + | Episcopalian Affiliation | Unknown | + + + | Race | Unknown | + + + | Ethnic Group | Unknown | + + + Author + + + | Author | [facility] | | | and [place] | + + + | Organization | [facility] | | | and [place] | + + + | Address | Unknown | + + + | Phone | Unavailable | + + + Support +------+ +---------+ + | Name | Relationship | Address | Phone | +------+ +---------+ + ECON | Unknown | | +------+ +---------+ + Care Team Providers + +------+ + | Care Manufacturing Weaver Name | Role | Phone | + +------+ + | Keith May | PCP | | | MD | | | + +------+ + Encounter Details +--------+ + + + + | Date | Type | Department | Care Team | Description | +--------+ + + + + | 02/24/ | Hospital | [facility] GENER[facility] IP | Conversion | Pain | | 2018 | Encounter | CONVERSION DEP [address] | Transaction, | | | | | [facility] | Provider Unknown | | | | | [address] [facility] | [phone] | | | | | [address] | | | | | | [phone] | | | +--------+ + + + [...]
--- OUTSIDE RECORDS SUMMARY | ~2019-10-24 | XMS | Encounter Summary ---
Demographics + + + | Address | [address] | | | [place] [address] | + + + | Home Phone | | + + + | Preferred Language | Unknown | + + + | Marital Status | | + + + | Pentecostalism Affiliation | Unknown | + + + | Race | Unknown | + + + | Ethnic Group | Unknown | + + + Author + + + | Author | [facility] | | | and [place] | + + + | Organization | [facility] | | | and [place] | + + + | Address | Unknown | + + + | Phone | Unavailable | + + + Support +------+ +---------+ + | Name | Relationship | Address | Phone | +------+ +---------+ + ECON | Unknown | | +------+ +---------+ + Care Team Providers + +------+ + | Care Program Manager Name | Role | Phone | [...] | | | | [address] | [place] [address] | | | | | [place] [address] | | | | | | [phone] | | | +--------+ + + + [...] | | WO CONTRAST | e | 12:45 PM | | procedure are in the | | | | PDT | | results section. | + +--------+ + + + documented in this encounter Results MRI Shoulder Right wo Contrast (03/31/2018 12:45 PM PDT) + + | Specimen | [...]
--- OUTSIDE RECORDS SUMMARY | ~2019-10-24 | XMS | Encounter Summary ---
Demographics + + + | Address | [address] | | | [place] [address] | + + + | Home Phone | | + + + | Preferred Language | Unknown | + + + | Marital Status | | + + + | Sabianist Affiliation | Unknown | + + + | Race | Unknown | + + + | Ethnic Group | Unknown | + + + Author + + + | Author | [facility] | | | and [place] | + + + | Organization | [facility] | | | and [place] | + + + | Address | Unknown | + + + | Phone | Unavailable | + + + Support +------+ +---------+ + | Name | Relationship | Address | Phone | +------+ +---------+ + ECON | Unknown | | +------+ +---------+ + Care Team Providers + +------+ + | Care Systems Software Manager Name | Role | Phone | + +------+ + | Keith May | PCP | | | MD | | | + +------+ + Encounter Details +--------+ + + + + | Date | Type | Department | Care Team | Description | +--------+ + + + + | 05/01/ | Hospital | [facility] | Warren Conner, | Chronic pain of left | | 2018 | Encounter | [facility] | [address] | knee | | | | [address] [place] | [place], [place] | | | | | [place], [place] | [address] | | | | | [address] | | | | | | [phone] | | | +--------+ + + + [...] + + + +---------+ + + | prednisoLONE (PRED | | | 0 | 04/22/20 | | | FORTE) 1% | | | | 18 | 8 | | ophthalmic | | | | | | | suspension | | | | | | + + + +---------+ + + documented as of this encounter Plan of Treatment Not on filedocumented as of this encounter Procedures + +--------+ + + + | Procedure Name | Priori | Date/Time | Associated Diagnosis | Comments | | | ty | | | | + +--------+ + + + | XR KNEE BILATERAL AP | Routin | 05/01/2018 | Chronic pain of | Results for this | | STANDING | e | 8:47 AM | left knee | procedure are in the | | | | PST | | results section. | + +--------+ + + + documented in this encounter Results XR Knee Bilateral AP Standing (05/01/2018 8:47 AM PST) + + | Specimen | + + | | + + + + + | Narrative | Performed At | + + + | SINGLE VIEW BILATERAL KNEES 05/01/2018 8:47 AM CLINICAL HISTORY: | [facility] | | Left Knee Pain COMPARISON: None available FINDINGS: The bones | | | are well-mineralized and well aligned. No fracture or subluxation | | | is evident. Scattered sclerotic regions in the distal femoral | | | diaphyses and potentially the proximal left tibia could reflect bone | | | infarcts. There is severe narrowing of the left medial femorotibial | | | joint compartment, with lesser narrowing of the lateral compartment, | | | and prominent marginal osteophyte formation. Mild to moderate | | | narrowing of the right lateral femorotibial compartment is also | | | present. Chondrocalcinosis is suspected. Soft tissues are | | | unremarkable. IMPRESSION - 1. SEVERE, ASYMMETRIC DEGENERATIVE | | | CHANGES INVOLVING THE LEFT FEMOROTIBIAL JOINT WITH LESSER | | | DEGENERATION OF THE RIGHT LATERAL FEMOROTIBIAL COMPARTMENT, AND | | | PROBABLE ASSOCIATED CHONDROCALCINOSIS. 2. 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 Dictated | | | and Signed by: Randy Borja MD Electronically signed: 05/01/2018 | | | 9:46 AM | | + + + + + | Procedure Note | + + | Ulices, Rad Results In - 05/01/2018 9:49 AM PST SINGLE VIEW BILATERAL KNEES 05/01/2018 | | 8:47 AMCLINICAL HISTORY: Left Knee PainCOMPARISON: None availableFINDINGS: The bones are | | well-mineralized and well aligned. No fracture orsubluxation is evident. Scattered | | sclerotic regions in the distal femoraldiaphyses and potentially the proximal left tibia | | could reflect bone infarcts. There is severe narrowing of the left medial femorotibial | | joint compartment,with lesser narrowing of the lateral compartment, and prominent | | marginalosteophyte formation. Mild to moderate narrowing of the right | | lateralfemorotibial compartment is also present. Chondrocalcinosis is suspected. | | Softtissues are unremarkable.IMPRESSION -1. SEVERE, ASYMMETRIC DEGENERATIVE CHANGES | | INVOLVING THE LEFT FEMOROTIBIALJOINT WITH LESSER DEGENERATION OF THE RIGHT LATERAL | | FEMOROTIBIAL COMPARTMENT,AND PROBABLE ASSOCIATED CHONDROCALCINOSIS.2. POTENTIAL BONE | | INFARCTS IN THE DISTAL FEMORA AND PROXIMAL LEFT TIBIA.Dictated and Signed by: Randy | | MD Jonh Electronically signed: 05/01/2018 9:46 AM | |tissues are unremarkable. | | | |IMPRESSION - | |1. SEVERE, ASYMMETRIC DEGENERATIVE CHANGES INVOLVING THE LEFT FEMOROTIBIAL | |JOINT WITH LESSER DEGENERATION OF THE RIGHT LATERAL FEMOROTIBIAL COMPARTMENT, | |AND PROBABLE ASSOCIATED CHONDROCALCINOSIS. | | | |2. 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 | | | |Dictated and Signed by: Randy Borja MD | | Electronically signed: 05/01/2018 9:46 AM | + + + +---------+ + + | Performing | Address | City/State/Zipcode | Phone Number | | Organization | | | | + +---------+ + + | [facility] | | | | + +---------+ + + documented in this encounter Visit Diagnoses + + | Diagnosis | + + | Chronic pain of left knee Pain in joint, lower leg | + + documented in this encounter"
--- OUTSIDE RECORDS SUMMARY | ~2019-10-24 | XMS | Encounter Summary ---
Demographics + + + | Address | [address] | | | [place] [address] | + + + | Home Phone | | + + + | Preferred Language | Unknown | + + + | Marital Status | | + + + | Rastafarian Affiliation | Unknown | + + + | Race | Unknown | + + + | Ethnic Group | Unknown | + + + Author + + + | Author | [facility] | | | and [place] | + + + | Organization | [facility] | | | and [place] | + + + | Address | Unknown | + + + | Phone | Unavailable | + + + Support +------+ +---------+ + | Name | Relationship | Address | Phone | +------+ +---------+ + ECON | Unknown | | +------+ +---------+ + Care Team Providers + +------+ + | Care Payroll Auditor Name | Role | Phone | + +------+ + | Keith May | PCP | | | MD | | | + +------+ + Encounter Details +--------+ + + + + | Date | Type | Department | Care Team | Description | +--------+ + + + + | 02/24/ | Hospital | [facility] | Conversion | Pain | | 2018 | Encounter | CONVERSION DEP [address] | Transaction, | | | | | [facility] | Provider Unknown | | | | | [place] | [phone] | | | | | [address] | | | | | | [phone] | | | +--------+ + + + [...]
--- OUTSIDE RECORDS SUMMARY | ~2019-10-24 | XMS | Encounter Summary ---
Demographics + + + | Address | [address] | | | [place] [address] | + + + | Home Phone | | + + + | Preferred Language | Unknown | + + + | Marital Status | | + + + | Methodist Affiliation | Unknown | + + + | Race | Unknown | + + + | Ethnic Group | Unknown | + + + Author + + + | Author | [facility] | | | and [place] | + + + | Organization | [facility] | | | and [place] | + + + | Address | Unknown | + + + | Phone | Unavailable | + + + Support +------+ +---------+ + | Name | Relationship | Address | Phone | +------+ +---------+ + ECON | Unknown | | +------+ +---------+ + Care Team Providers + +------+ + | Care Health Underwriter Name | Role | Phone | + [...] | | | | [address] | [place] [address] | | | | | [place] [address] | | | | | | [phone] | | | +--------+ + + + [...] RIGHT 3 + VW | Routin | 03/09/2016 | | Results for this | | | e | 4:20 PM | | procedure are in the | | | | PDT | | results section. | + +--------+ + + + documented in this encounter Results XR Hand Right 3 + Vw (03/09/2016 4:20 PM PDT) + + | Specimen | [...]
--- OUTSIDE RECORDS SUMMARY | ~2019-10-24 | XMS | Encounter Summary ---
Demographics + + + | Address | [address] | | | [place] [address] | + + + | Home Phone | | + + + | Preferred Language | Unknown | + + + | Marital Status | | + + + | Confucianist Affiliation | Unknown | + + + | Race | Unknown | + + + | Ethnic Group | Unknown | + + + Author + + + | Author | [facility] | | | and [place] | + + + | Organization | [facility] | | | and [place] | + + + | Address | Unknown | + + + | Phone | Unavailable | + + + Support +------+ +---------+ + | Name | Relationship | Address | Phone | +------+ +---------+ + ECON | Unknown | | +------+ +---------+ + Care Team Providers + +------+ + | Care Operations Manager/Coordinator Name | Role | Phone | + [...] | | | | [address] | [place] [address] | | | | | [place] [address] | | | | | | [phone] | | | +--------+ + + + [...]
--- OUTSIDE RECORDS SUMMARY | ~2019-10-24 | XMS | Encounter Summary ---
Demographics + + + | Address | [address] | | | [place] [address] | + + + | Home Phone | | + + + | Preferred Language | Unknown | + + + | Marital Status | | + + + | Rastafari Affiliation | Unknown | + + + | Race | Unknown | + + + | Ethnic Group | Unknown | + + + Author + + + | Author | [facility] | | | and [place] | + + + | Organization | [facility] | | | and [place] | + + + | Address | Unknown | + + + | Phone | Unavailable | + + + Support +------+ +---------+ + | Name | Relationship | Address | Phone | +------+ +---------+ + ECON | Unknown | | +------+ +---------+ + Care Team Providers + +------+ + | Care Assisted Living Care Manager Name | Role | Phone | [...] | Therapy | Right | Alan | [facility] | | | Required | | rotator cuff | [place], | PHYSICAL | | | | | tear | [address] | | | | | arthropathy | [address] | [place] | | | | | | [place], | [place] | | | | | | [place] | [address] | | | | | | [address] | Phone: | | | | | | Phone: | [phone] | | | | | | [phone] | Fax: | | | | | | Fax: | [phone] | | | | | | [phone] | | +--------+ + + + + [...] | | | | | [place] | [address] | | | | | | [address] | Phone: | | | | | | Phone: | [phone] | | | | | | [phone] | Fax: | | | | | | Fax: | [phone] | | | | | | [phone] | | +--------+--------+ + + + + Encounter Details +--------+---------+ + + + | Date | Type | Department | Care Team | Description | +--------+---------+ + + + | 05/13/ | Office | [facility] | Alan Mcfadden | Right rotator cuff | | 2018 | Visit | ORTHOPEDIC SURGERY | MD [address] | tear arthropathy | | | | [address] [facility] | [address] | (Primary Dx); Right | | | | [place], [place] | [place] [address] | shoulder pain, | | | | [address] | [phone] | unspecified | | | | [phone] | | chronicity; Fall, | | | [...] your healthcare provider: Stand with your shoulder [id number] from the wall. Raise your arm to shoulder level and gently walk your fingers up the wall as high as you can. Hold for a few seconds. Then walk your fingers back down. Repeat 3times. Move closer to the wall as you repeat. Build up to holding each stretch [id number]. Caution:Do this stretch only if your healthcare provider recommends it. Don t do it whe n you are first injured. Date Last Reviewed: 08/15/201719999512-1766 [employer]. [address] [place] [address], [place] [address]. All righ ts reserved. This information is not intended as a substitute for professional medical care. Always follow your healthcare professional's instructions. documented in this encounter Progress Notes Alan Mcfadden MD - 05/13/2018 1:00 PM PSTFormatting of this note might be different fro m the original. [facility] HISTORY AND PHYSICAL EXAMINATION [...] knee medial meniscectomy open arthrotomy 1979 in [place] Allergies: Allergies Allergen Reactions Codeine Hives Indomethacin [...] made to ensure accuracy; however, inadvertent computerized vacuum metalizing supervisor errors may be pre sent. I appreciate the opportunity to help with the management of this patient. Alan Mcfadden MD [facility] umented in this encounter Plan [...]
--- OUTSIDE RECORDS SUMMARY | ~2019-10-24 | XMS | Clinical Summary ---
Demographics + + + | Address | [address] | | | [place] [address] | + + + | Home Phone | | + + + | Preferred Language | Unknown | + + + | Marital Status | | + + + | Hindu Affiliation | Unknown | + + + | Race | Unknown | + + + | Ethnic Group | Unknown | + + + Author + + + | Author | [facility] | | | and [place] | + + + | Organization | [facility] | | | and [place] | + + + | Address | Unknown | + + + | Phone | Unavailable | + + + Support +------+ +---------+ + | Name | Relationship | Address | Phone | +------+ +---------+ + ECON | Unknown | | +------+ +---------+ + Care Team Providers + +------+ + | Care Assistant Producer Name | Role | Phone | + +------+ + | Keith May | PCP | | | MD | | | + +------+ + Allergies + [...] + + + | Pregabalin | Nausea And Vomiting | Low | 01/31/20 | | | | | | 18 | | + + + + + + | Scopolamine | Other (See Comments) | Medium | 01/31/20 | Unknown | | | | | 18 | | + + + + + + Medications + + + +---------+------+------+-------+ | Medication | Sig | Dispensed | Refills | Star | End | Statu | | | | | | t | Date | s | | | | | | Date | | | + + + +---------+------+------+-------+ | albuterol 90 | Inhale 2 puffs into | | 0 | | | Activ | | mcg/puff inhaler | the lungs. | | | | | e | + + + +---------+------+------+-------+ | aspirin 81 MG | Take 81 mg by mouth. | | 0 | | | Activ | | tablet | | | | | | e | + + + +---------+------+------+-------+ | Coenzyme Q10 (CO Q | Take by mouth. | | 0 | | | Activ | | 10) 10 MG CAPS | | | | | | e | + + + +---------+------+------+-------+ | DULoxetine | Take 60 mg by mouth. | | 0 | | | Activ | | (CYMBALTA) [address] | | | | | | e | | capsule | | | | | | | + + + +---------+------+------+-------+ | fluticasone | Inhale 1 puff into | | 0 | | | Activ | | (FLOVENT HFA) 220 | the lungs. | | | | | e | | mcg/puff inhaler | | | | | | | + + + +---------+------+------+-------+ | SIMBRINZA 1-0.2 % | | | 0 | 10/0 | | Activ | | SUSP | | | | 2/20 | | e | | | | | | 18 | | | + + + +---------+------+------+-------+ | BIOTIN PO | Take by mouth. | | 0 | | | Activ | | | | | | | | e | + + + +---------+------+------+-------+ | Multiple | Take by mouth. | | 0 | | | Activ | | Vitamins-Minerals | | | | | | e | | (WOMENS 50+ MULTI | | | | | | | | VITAMIN/MIN) TABS | | | | | | | + + + +---------+------+------+-------+ Active Problems + + + | Problem | Noted Date | + + + | Right rotator cuff tear arthropathy | 05/13/2018 | + + + | Fall | 05/13/2018 | + + + Immunizations + + + + | Name | Administration Dates | Next Due | + + + + | INFLUENZA 64 Y OR >, | 05/06/2016, 03/28/2014, 06/21/2013, | | | TRIVALENT HIGH-DOSE | 06/02/2011, 04/12/2010 | | + + + + | INFLUENZA PF 64 Y OR | 06/19/2017 | | | >,TRIVALENT (FLUAD) | | | + + + + | PNEUMOCOCCAL | 02/14/2015 | | | CONJUGATE 13-VALENT | | | | (PCV13) | | | + + + + | PNEUMOCOCCAL | 07/25/2017 | | | POLYSACCHARIDE | | | | 23-VALENT (PPSV23) | | | + + + + | ZOSTER, 1 DOSE | 08/19/2014 | | | (ZOSTAVAX) | | | + + + + Social [...] recent travel history available. | + + Last Filed Vital Signs + + + + + | Vital Sign | Reading | Time Taken | Comments | + + + + + | Blood Pressure | 110/58 | 01/30/2018 1:10 PM | | | | | PDT | | + + + + + | Pulse | 67 | 03/20/2018 9:39 AM | | | | | PDT | | + + + + + [...] | | + + + + + Plan of Treatment + + + + + | Health Maintenance | Due Date | Last Done | Comments | + + + + + | Vaccine: | | | | | Dtap/Tdap/Td (1 - | 1 | | | | Tdap) | | | | + + + + + | Breast Cancer | | | | | Screening | 5 | | | + + + + + | Vaccine: Zoster (2 | | 08/19/2014 | | | of 3) | 5 | | | + + + + + | Adult Annual | | | | | Wellness Visit | 8 | | | + + + + + | Vaccine: Influenza | | 06/19/2017, 05/06/2016, | | | (Season Ended) | 0 | 03/28/2014, Additional history | | | | | exists | | + + + + + | Vaccine: | Completed | 07/25/2017, 02/14/2015 | | | Pneumococcal 65+ | | | | + + + + + Results Not on filefrom Last 3 Months Insurance + +--------+ +--------+ +---------+--------+ | Payer | Benefi | Subscriber | Effect | Phone | Address | Type | | | t Plan | ID | babatunde | | | | | | / | | Dates | | | | | | Group | | | | | | + +--------+ +--------+ +---------+--------+ | MEDICARE | MEDICA | [id number] | 06/17/19 | [phone] | | Medica | | | RE | | 19-Pre | 5 | | re | | | PART A | | sent | | | | | | AND B | | | | | | + +--------+ +--------+ +---------+--------+ + +--------+ +--------+ + + | Guarantor Name | Accoun | Relation to | Date | Phone | Billing Address | | | t Type | Patient | of | | | | | | | | | | + +--------+ +--------+ + + | Chayo Harris | Person | Self [birth year] | [address] | | | al/Fam | | 1941 | [phone] | [place] | | | leif | | | 2 (Home) | [address] | + +--------+ +--------+ + + Advance Directives + + + + + | Type | Date Recorded | Patient | Explanation | | | | Technical Designer | | + + + + + | Power of | | | | | Supervisor Microwave | | | | + + + + + | Advance | 05/01/2018 | | | | Directive | 8:38 AM | | | + + + + +"
--- OUTSIDE RECORDS SUMMARY | ~2019-10-24 | XMS | Encounter Summary ---
Demographics + + + | Address | [address] | | | [place] [address] | + + + | Home Phone | | + + + | Preferred Language | Unknown | + + + | Marital Status | | + + + | Confucianist Affiliation | Unknown | + + + | Race | Unknown | + + + | Ethnic Group | Unknown | + + + Author + + + | Author | [facility] | | | and [place] | + + + | Organization | [facility] | | | and [place] | + + + | Address | Unknown | + + + | Phone | Unavailable | + + + Support +------+ +---------+ + | Name | Relationship | Address | Phone | +------+ +---------+ + ECON | Unknown | | +------+ +---------+ + Care Team Providers + +------+ + | Care Social Services Name | Role | Phone | + [...] | | | | [address] | [place] [address] | | | | | [place] [address] | | | | | | [phone] | | | +--------+ + + + [...] | | + VW | e | 9:50 AM | | procedure are in the | | | | PDT | | results section. | + +--------+ + + + documented in this encounter Results XR Shoulder Right 2 + Vw (03/20/2018 9:50 AM PDT) + + | Specimen | [...]
--- OUTSIDE RECORDS SUMMARY | ~2019-10-24 | XMS | Encounter Summary ---
Demographics + + + | Address | [address] | | | [place] [address] | + + + | Home Phone | | + + + | Preferred Language | Unknown | + + + | Marital Status | | + + + | Gnosticist Affiliation | Unknown | + + + | Race | Unknown | + + + | Ethnic Group | Unknown | + + + Author + + + | Author | [facility] | | | and [place] | + + + | Organization | [facility] | | | and [place] | + + + | Address | Unknown | + + + | Phone | Unavailable | + + + Support +------+ +---------+ + | Name | Relationship | Address | Phone | +------+ +---------+ + ECON | Unknown | | +------+ +---------+ + Care Team Providers + +------+ + | Care Slumber Room Attendant Name | Role | Phone | + [...] | | | | [address] | [place] [address] | | | | | [place] [address] | | | | | | [phone] | | | +--------+ + + + [...]
--- OUTSIDE RECORDS SUMMARY | ~2019-10-24 | XMS | Encounter Summary ---
Demographics + + + | Address | [address] | | | [place] [address] | + + + | Home Phone | | + + + | Preferred Language | Unknown | + + + | Marital Status | | + + + | Episcopal Affiliation | Unknown | + + + | Race | Unknown | + + + | Ethnic Group | Unknown | + + + Author + + + | Author | [facility] | | | and [place] | + + + | Organization | [facility] | | | and [place] | + + + | Address | Unknown | + + + | Phone | Unavailable | + + + Support +------+ +---------+ + | Name | Relationship | Address | Phone | +------+ +---------+ + ECON | Unknown | | +------+ +---------+ + Care Team Providers + +------+ + | Care Anesthesiologist And Critical Care Name | Role | Phone | + +------+ + | Keith May | PCP | | | MD | | | + +------+ + Reason for Visit + + + | Reason | Comments | + + + | New Patient | NEW PT: Left Knee Pain Onset xSeveral Years | + + + Evaluate & Treat (Routine) +--------+--------+ + + + + | Status | Reason | Specialty | Diagnoses / | Referred By | Referred To | | | | | Procedures | Contact | Contact | +--------+--------+ + + + + | Closed | | Orthopedic | Diagnoses | Lalo, | Ubaldo | | | | Surgery | Unilateral | Keith | Warren Gaona MD | | | | | primary | MD Loyd | [address] | | | | | osteoarthrit | [address] | [place], | | | | | is, left | L[place] | [place] [address] | | | | | knee | [place] | Phone: | | | | | | [place] | [phone] | | | | | | [address] | Fax: | | | | | | Phone: | [phone] | | | | | | [phone] | | | | | | | Fax: | | | | | | | [phone] | | +--------+--------+ + + + + Encounter Details +--------+---------+ + + + | Date | Type | Department | Care Team | Description | +--------+---------+ + + + | 05/01/ | Office | [facility] | Warren Conner, | Chronic pain of left | | 2018 | Visit | ORTHOPEDIC SURGERY | MD Tatyana WEI | knee (Primary Dx); | | | | [address] | [place], [place] | Primary | | | | [place], [place] | [address] | osteoarthritis of | | | | [address] | | left knee | | | | [phone] | | | +--------+---------+ + + + Social History [...] Weight | 44.9 kg (99 lb) | 05/01/2018 8:58 AM | | | | | PST | | + + + + + | Height | 152.4 cm (5') | 05/01/2018 8:58 AM | | | | | PST | | + + + + + | Body Mass Index | 19.33 | 05/01/2018 8:58 AM | | | | | PST | | + + + + + documented in this encounter Progress Notes Warren Conner MD - 05/01/2018 9:00 AM PSTFormatting of this note might be different fro m the original. History of present illness: Chayo is a 77 y.o. 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 Leblanc and was offered TKA but wants another opinion She does have a history of PE associated with hysterectomy surgery many years ago - never h ad another blood clot after She also has terrible intolerances to opioids - severe nausea, itching, sedation She lives alone and has animals including horses to care for and no family anywhere near She is a nonsmoker Past Medical History: Diagnosis Date Pulmonary embolus (HCC) Past Surgical History: Procedure Laterality Date HYSTERECTOMY left knee arthroscopy debridement left knee medial meniscectomy open arthrotomy 1979 in [place] Allergies Allergen Reactions Codeine Hives Indomethacin Hives Phenobarbital Other (See Comments) Reaction unknown Povidone Iodine Other (See Comments) Unknown Scopolamine Other (See Comments) Unknown Pregabalin Nausea And Vomiting No current outpatient prescriptions on file prior to visit. No current facility-administered medications on file prior to visit. History reviewed. No pertinent family history. Social History Social History Marital status: Spouse name: N/A Number of children: N/A Years of education: N/A Occupational History Not on file. Social History Main Topics Smoking status: Never Smoker Smokeless tobacco: Never Used Alcohol use Yes Drug use: No Sexual activity: Not on file Other Topics Concern Not on file Social History Narrative No narrative on file Review of Systems Eyes: [] Double vision [] Glasses/contacts [x] Failing vision Ear/Nose/Throat: [] Frequent Colds [] Sinus Disease [] Nose obstruction [] Sneezing Spells [] Change in taste [] Artificial teeth [] Ears ringing [] Ear pain [] Hearing loss [] Teeth problems [] Hoarseness [] Neck swelling [] Sore throat [] Congestion [] Nosebleeds [] Nasal allergies Respiratory: [] Asthma/Wheezing [] Pneumonia [] Night sweats [] Shortness of breath [] Chronic cough [] Coughing up blood [] Exposure to tuberculosis Cardiovascular: [] Heart Problems [] Hypertension [] Heart murmur [] Palpitations [] Rheumatic fever [] Phlebitis [] Chest pain [] Ankle swelling [] Leg cramps [] Racin g heart [] Skipping beats [x] Blood clots Gastrointestinal: [] Abdominal pain [x] Heartburn [] Blood from rectum [] Colitis [] Gallbladder problems [] Troubl e swallowing [] Bloated stomach [] Change in stools [] Vomiting blood [] Nausea [] Hemorrhoids [] Jaundice [ ] Hepatitis [] Diarrhea [] Constipation [] Diverticulitis Urinary Tract: [] Painful urination [] Kidney Stones [x] Any urine leakage [] Weak urine stream [] Night urination [] Urine infections [] Bedwetting [] Blood in urine Skin: [] Skin rashes [] Itching/Burning [] Skin bruises easil y [] Artificial tanning [] Skin cancer [] Hair loss [] Changes in moles Musculoskeletal: [x] Physical handicaps [x] Back or shoulder pain []Rheumatoid disease [x] Osteoarthritis [x] Joint pain [x] Joint swelling []Gout [] Leg cramps at night Neurological: [] Headaches [] Seizures [] Stroke/TIA [] Faintness [] Tremors [] Numbness [] Dizziness [x] Changes in handwriting [] Memory loss [] Shooting pains Psychiatric: [] Depression [] Suicidal thoughts [] Sleep pattern changes [] Appetite changes [] Recent counseling [] Nervousness/anxiety [] Physical violence [] Marital problems Endocrine: [] Thyroid [] Diabetes Systemic: []Weight loss/gain (over 10 lbs) []Fever/chills []Fatigue [] Sleeping Difficulties [] Speech change [] Voice change Vitals: 05/01/18 0858 PainSc: 2 PainLoc: Knee Estimated body mass index is 19.33 kg/m as calculated from the following: Height as of this encounter: 1.524 m (5'). Weight as of this encounter: 44.9 kg (99 lb). On exam she has multiple IP joint arthritic changes clinically both hands Her left knee has well localized medial joint line tenderness No varus or valgus stress instability She comes into full extension and flexes down to 120 Skin with no rashes or skin lesions She has a typical short medial meniscectomy scar No popliteal masses Modest pouch effusion today Positive crepitus to patellofemoral motion and retropatella compression Distally intact pedal pulses xrays reviewed by me and show bone on bone osteoarthritis left knee Assessment: severe and advanced bone on bone osteoarthritis left knee Plan: the natural history and treatment options discussed at length We discussed TKA today, the risks of the surgery and reasonable expectations for the recove ry period Her history of a PE after hysterectomy surgery places her in a higher than average risk cat egory for PE after TKA Her intolerance to opioids and her living alone portends for a difficult postop recovery pe riod and most likely will need SNF rehab prior to discharge to home This is all discussed at length with her as well as my advice that she not pursue TKA unles s she is truly at the end of her ability to live with her knee conservatively She understands and will let me know when she is ready The above note was dictated using [employer] voice recognition software. It may have not been p roofread in entirety. Minor errors in grammar may occur. documented in this en counter Plan of Treatment Not on filedocumented as of this encounter Results XR Knee Bilateral AP [...] + | Chronic pain of left knee - Primary Pain in joint, lower leg | + + | Primary osteoarthritis of left knee Primary localized osteoarthrosis, lower leg | + + documented in this encounter"
--- OUTSIDE RECORDS SUMMARY | ~2019-10-24 | XMS | Encounter Summary ---
Demographics + + + | Address | [address] | | | [place] [address] | + + + | Home Phone | | + + + | Preferred Language | Unknown | + + + | Marital Status | | + + + | Evangelical Affiliation | Unknown | + + + | Race | Unknown | + + + | Ethnic Group | Unknown | + + + Author + + + | Author | [facility] | | | and [place] | + + + | Organization | [facility] | | | and [place] | + + + | Address | Unknown | + + + | Phone | Unavailable | + + + Support +------+ +---------+ + | Name | Relationship | Address | Phone | +------+ +---------+ + ECON | Unknown | | +------+ +---------+ + Care Team Providers + +------+ + | Care Presales Senior Specialist Name | Role | Phone | + [...] | | | | [address] | [place] [address] | | | | | [place] [address] | | | | | | [phone] | | | +--------+ + + + [...] XR SHOULDER RIGHT 2 | Routin | 09/18/2005 | | Results for this | | + VW | e | 4:55 PM | | procedure are in the | | | | PDT | | results section. | + +--------+ + + + documented in this encounter Results XR Shoulder Right 2 + Vw (09/18/2005 4:55 PM PDT) + + | Specimen | [...]
--- OUTSIDE RECORDS SUMMARY | ~2019-10-24 | XMS | Encounter Summary ---
Demographics + + + | Address | [address] | | | [place] [address] | + + + | Home Phone | | + + + | Preferred Language | Unknown | + + + | Marital Status | | + + + | Anabaptism Affiliation | Unknown | + + + | Race | Unknown | + + + | Ethnic Group | Unknown | + + + Author + + + | Author | [facility] | | | and [place] | + + + | Organization | [facility] | | | and [place] | + + + | Address | Unknown | + + + | Phone | Unavailable | + + + Support +------+ +---------+ + | Name | Relationship | Address | Phone | +------+ +---------+ + ECON | Unknown | | +------+ +---------+ + Care Team Providers + +------+ + | Care Toucher Up Name | Role | Phone | + [...] | | | | [address] | [place] [address] | | | | | [place] [address] | | | | | | [phone] | | | +--------+ + + + [...]
--- OUTSIDE RECORDS SUMMARY | ~2019-10-24 | XMS | Encounter Summary ---
Demographics + + + | Address | [address] | | | [place] [address] | + + + | Home Phone [...] + | Author | [facility] | | | and [place] | + + + | Organization | [facility] | | | and [place] | + + + | Address | Unknown | + + + | Phone | Unavailable | + + + Support +------+ +---------+ + | Name | Relationship | Address | Phone | +------+ +---------+ + ECON | Unknown | | +------+ +---------+ + Care Team Providers + +------+ + | Care Hat Parts Cutter Machine Name | Role | Phone | + [...] | | | | [address] | [place] [address] | | | | | [place] [address] | | | | | | [phone] | | | +--------+ + + + [...]
--- OUTSIDE RECORDS SUMMARY | ~2019-10-24 | XMS | Encounter Summary ---
Demographics + + + | Address | [address] | | | [place] [address] | + + + | Home Phone | | + + + | Preferred Language | Unknown | + + + | Marital Status | | + + + | Voodoo Affiliation | Unknown | + + + | Race | Unknown | + + + | Ethnic Group | Unknown | + + + Author + + + | Author | [facility] | | | and [place] | + + + | Organization | [facility] | | | and [place] | + + + | Address | Unknown | + + + | Phone | Unavailable | + + + Support +------+ +---------+ + | Name | Relationship | Address | Phone | +------+ +---------+ + ECON | Unknown | | +------+ +---------+ + Care Team Providers + +------+ + | Care Brim Edge Trimmer Name | Role | Phone | + [...] | | | | [address] | [place] [address] | | | | | [place] [address] | | | | | | [phone] | | | +--------+ + + + [...]
--- OUTSIDE RECORDS SUMMARY | ~2019-10-24 | XMS | Encounter Summary ---
Demographics + + + | Address | [address] | | | [place] [address] | + + + | Home Phone | | + + + | Preferred Language | Unknown | + + + | Marital Status | | + + + | Confucianism Affiliation | Unknown | + + + | Race | Unknown | + + + | Ethnic Group | Unknown | + + + Author + + + | Author | [facility] | | | and [place] | + + + | Organization | [facility] | | | and [place] | + + + | Address | Unknown | + + + | Phone | Unavailable | + + + Support +------+ +---------+ + | Name | Relationship | Address | Phone | +------+ +---------+ + ECON | Unknown | | +------+ +---------+ + Care Team Providers + +------+ + | Care Meat Grader Name | Role | Phone | + +------+ + | Keith May | PCP | | | MD | | | + +------+ + Encounter Details +--------+ + + + + | Date | Type | Department | Care Team | Description | +--------+ + + + + | 05/01/ | Hospital | [facility] | Warren Conner, | Chronic pain of left | | 2018 | Encounter | [facility] | [address] | knee | | | | [address] [place] | [place], [place] | | | | | [place], [place] | [address] | | | | | [address] | | | | | | [phone] | | | +--------+ + + + [...]
--- OUTSIDE RECORDS SUMMARY | ~2019-10-24 | XMS | Clinical Summary ---
Demographics + + + | Address | [address] | | | [place] [address] | + + + | Home Phone | | + + + | Preferred Language | Unknown | + + + | Marital Status | | + + + | Alevism Affiliation | Unknown | + + + [...] Team Providers + +------+ + | Care Animal Nutrition Teacher Name | Role | Phone | + [...] +--------+ +---------+--------+ | MEDICARE | MEDICA | [id number] | 06/17/19 | [phone] | | Medica [...] Person | Self [birth year] | [address] | | | al/Fam | | 1941 | [phone] | [place] | | | leif | | | 2 (Home) | [address] | + +--------+ +--------+ + + Advance Directives + + + + + | Type | Date Recorded | Patient | Explanation | | | | Junior Software Engineer | | + + + + + | Power of | | | | | Soap Mixer | | | | + + + + + | Advance | 05/01/2018 | | | | Directive | 8:38 AM | | | + + + + +"
--- OUTSIDE RECORDS SUMMARY | ~2019-10-24 | XMS | Encounter Summary ---
Demographics + + + | Address | [address] | | | [place] [address] | + + + | Home Phone | | + + + | Preferred Language | Unknown | + + + | Marital Status | | + + + | Roman Catholic Affiliation | Unknown | + + + | Race | Unknown | + + + | Ethnic Group | Unknown | + + + Author + + + | Author | [facility] | | | and [place] | + + + | Organization | [facility] | | | and [place] | + + + | Address | Unknown | + + + | Phone | Unavailable | + + + Support +------+ +---------+ + | Name | Relationship | Address | Phone | +------+ +---------+ + ECON | Unknown | | +------+ +---------+ + Care Team Providers + +------+ + | Care Prototype Carpenter Name | Role | Phone | + +------+ + | Keith May | PCP | | | MD | | | + +------+ + Encounter Details +--------+ + + + + | Date | Type | Department | Care Team | Description | +--------+ + + + + | 05/13/ | Hospital | [facility] | Alan Mcfadden | Right shoulder pain, | | 2017 | Encounter | [facility] | [address] | unspecified | | | | [address] [place] | [address] [place] | chronicity | | | | [place], [place] | [place] [address] | | | | | [address] | [phone] | | | | | [phone] | | | +--------+ + + + [...] + + | Performing | Address | City[facility] | Phone Number | | Organization | | | | + +---------+ + + | [facility] | | | | + +---------+ + + documented in this encounter Visit Diagnoses + + | Diagnosis | + + | Right shoulder pain, unspecified chronicity | + + documented in this encounter"
--- OUTSIDE RECORDS SUMMARY | ~2019-10-24 | XMS | Encounter Summary ---
Demographics + + + | Address | [address] | | | [place] [address] | + + + | Home Phone | | + + + | Preferred Language | Unknown | + + + | Marital Status | | + + + | Shinto Affiliation | Unknown | + + + | Race | Unknown | + + + | Ethnic Group | Unknown | + + + Author + + + | Author | [facility] | | | and [place] | + + + | Organization | [facility] | | | and [place] | + + + | Address | Unknown | + + + | Phone | Unavailable | + + + Support +------+ +---------+ + | Name | Relationship | Address | Phone | +------+ +---------+ + ECON | Unknown | | +------+ +---------+ + Care Team Providers + +------+ + | Care Bale Opener Name | Role | Phone | + +------+ + | Keith May | PCP | | | MD | | | + +------+ + Encounter Details +--------+ + + + + | Date | Type | Department | Care Team | Description | +--------+ + + + + | 04/03/ | Hospital | [facility] | Conversion | Pain | | 2018 | Encounter | CONVERSION DEP [address] | Transaction, | | | | | [facility] | Provider Unknown | | | | | [address] | [phone] | | | | | [address] | | | | | | [phone] | | | +--------+ + + + [...]
--- OUTSIDE RECORDS SUMMARY | ~2019-10-24 | XMS | Encounter Summary ---
Demographics + + + | Address | [address] | | | [place] [address] | + + + | Home Phone | | + + + | Preferred Language | Unknown | + + + | Marital Status | | + + + | Orthodoxy Affiliation | Unknown | + + + | Race | Unknown | + + + | Ethnic Group | Unknown | + + + Author + + + | Author | [facility] | | | and [place] | + + + | Organization | [facility] | | | and [place] | + + + | Address | Unknown | + + + | Phone | Unavailable | + + + Support +------+ +---------+ + | Name | Relationship | Address | Phone | +------+ +---------+ + ECON | Unknown | | +------+ +---------+ + Care Team Providers + +------+ + | Care Store Person Name | Role | Phone | + [...] | | | | [address] | [place] [address] | | | | | [place] [address] | | | | | | [phone] | | | +--------+ + + + [...]
--- OUTSIDE RECORDS SUMMARY | ~2019-10-24 | XMS | Encounter Summary ---
Demographics + + + | Address | [address] | | | [place] [address] | + + + | Home Phone | | + + + | Preferred Language | Unknown | + + + | Marital Status | | + + + | Mu-Ism Affiliation | Unknown | + + + | Race | Unknown | + + + | Ethnic Group | Unknown | + + + Author + + + | Author | [facility] | | | and [place] | + + + | Organization | [facility] | | | and [place] | + + + | Address | Unknown | + + + | Phone | Unavailable | + + + Support +------+ +---------+ + | Name | Relationship | Address | Phone | +------+ +---------+ + ECON | Unknown | | +------+ +---------+ + Care Team Providers + +------+ + | Care Test Center Administrator Name | Role | Phone | + +------+ + | Keith May | PCP | | | MD | | | + +------+ + Encounter Details +--------+ + + + + | Date | Type | Department | Care Team | Description | +--------+ + + + + | 02/24/ | Hospital | [facility] | Conversion | Pain | | 2018 | Encounter | CONVERSION DEP [address] | Transaction, | | | | | [facility] | Provider Unknown | | | | | [address]OD[place] [facility]ST[address] | [phone] | | | | | [address] | | | | | | [phone] | | | +--------+ + + + [...]
--- OUTSIDE RECORDS SUMMARY | ~2019-10-24 | XMS | Encounter Summary ---
Demographics + + + | Address | [address] | | | [place] [address] | + + + | Home Phone | | + + + | Preferred Language | Unknown | + + + | Marital Status | | + + + | Spiritism Affiliation | Unknown | + + + | Race | Unknown | + + + | Ethnic Group | Unknown | + + + Author + + + | Author | [facility] | | | and [place] | + + + | Organization | [facility] | | | and [place] | + + + | Address | Unknown | + + + | Phone | Unavailable | + + + Support +------+ +---------+ + | Name | Relationship | Address | Phone | +------+ +---------+ + ECON | Unknown | | +------+ +---------+ + Care Team Providers + +------+ + | Care Hip Hop Artist Name | Role | Phone | + [...] | is, left | Lyla Zambrano | [place] [address] | | | | | knee | [place] | Phone: | | | | | | [place] | [phone] | | | | | | [address] | Fax: | | | | | | Phone: | [phone] | | | | | | [phone] | | | | | | | Fax: | | | | | | | [phone] | | +--------+--------+ + + + + Encounter Details +--------+---------+ + + + | Date | Type | Department | Care Team | Description | +--------+---------+ + + + | 05/01/ | Office | [facility] | Warren Conner, | Chronic pain of left | | 2018 | Visit | ORTHOPEDIC SURGERY | MD Tatyana WEI | knee (Primary Dx); | | | | [address] | [place], [place] | Primary | | | | [place], [place] | [address] | osteoarthritis of | | | | [address] | | left knee | | | | [phone] | | | +--------+---------+ + + + [...] knee open medial meniscectomy in 1979 in [place] and a scope debridement surge ry many [...] knee medial meniscectomy open arthrotomy 1979 in [place] Allergies Allergen Reactions Codeine Hives Indomethacin Hives [...] ready The above note was dictated using [employer] voice recognition software. It may have not [...]
--- OUTSIDE RECORDS SUMMARY | ~2019-10-24 | XMS | Encounter Summary ---
Demographics + + + | Address | [address] | | | [place] [address] | + + + | Home Phone | | + + + | Preferred Language | Unknown | + + + | Marital Status | | + + + | Mu-Ism Affiliation | Unknown | + + + | Race | Unknown | + + + | Ethnic Group | Unknown | + + + Author + + + | Author | [facility] | | | and [place] | + + + | Organization | [facility] | | | and [place] | + + + | Address | Unknown | + + + | Phone | Unavailable | + + + Support +------+ +---------+ + | Name | Relationship | Address | Phone | +------+ +---------+ + ECON | Unknown | | +------+ +---------+ + Care Team Providers + +------+ + | Care Armor Reconnaissance Specialist Name | Role | Phone | + +------+ + | Keith May | PCP | | | MD | | | + +------+ + Encounter Details +--------+ + + + + | Date | Type | Department | Care Team | Description | +--------+ + + + + | 02/24/ | Hospital | [facility] | Conversion | Pain | | 2018 | Encounter | CONVERSION DEP [address] | Transaction, | | | | | [facility] | Provider Unknown | | | | | [place] | [phone] | | | | | [address] | | | | | | [phone] | | | +--------+ + + + [...]
[~2019-10-24 12:35] MED LIST: ADVIL200 M1 PO; ASPIRIN EC81 MG PO; ATORVASTATIN CA80 MG PO; BUDEPRION XL150 MG PO; BUPROPION XL300 MG PO; CLORAZEPATE DI7.5 MG PO; KEFLEX500 MG PO; LIDODERM700 MG TOP; MELOXICAM15 MG PO; METOPROLOL SUCC25 MG PO; MEVACOR40 MG PO; NORCO 5-325 TA1 EACH PO; PAIN RELIEVER500 MG PO; PREDNISONE20 MG PO; TEGRETOL200 MG PO; TRAMADOL HCL50 MG PO; XALATAN2.5 ML OU
[2019-10-24] MEDS ORDERED: PREDNISONE20 MG PO (15:55)
== END 2019-10-24 16:09 | disposition home or self-care (01) ==
LOC: ED 12:35
DX: M75.21 Bicipital tendinitis, right shoulder (principal); I10 Essential (primary) hypertension; Z88.5 Allergy status to narcotic agent; Z88.8 Allergy status to other drugs, medicaments and biological substances; Z79.899 Other long term (current) drug therapy
CPT/HCPCS: 73030; 80048; 85025; 85379; 93971; 99284-25

== ENCOUNTER 2020-12-06 06:26 | Inpatient (IN) | payer MEDICARE ==
[~2020-12-06] VITALS: Ht 154.9 cm; Wt 43.0 kg
[2020-12-06] MEDS ORDERED: CEPHALEXIN500 M1 PO (09:00)
--- NOTE | 2020-12-06 11:26 | EKG ---
[facility] [address] [place] [address] Signed Sinus rhythm with premature atrial complexes Low voltage QRS Borderline ECG When compared with ECG of 16-MAR-2016 12:04, premature atrial complexes are now present Confirmed by FADUMO MORIN MD ([id number]) on 12/06/2020 11:26:42 AM Electronically Signed By: FADUMO MORIN MD 12/06/20 [id number] PATIENT NAME: ARNALDO CASTILLO Electrocardiogram DATE OF : 38 PHYSICIAN: FADUMO MORIN MD REPORT #: [id number] REPORT IS CONFIDENTIAL AND NOT TO BE RELEASED WITHOUT AUTHORIZATION
[2020-12-06] MEDS ORDERED: BRIMONIDINE TART5 ML OU (15:56)
[2020-12-06] MEDS ORDERED: DULOXETINE HCL20 MG PO (15:57)
[2020-12-07] MEDS ORDERED: XALATAN2.5 ML OU (09:44)
[2020-12-14] MEDS ORDERED: LIPITOR40 MG PO (09:24)
[2020-12-14] MEDS ORDERED: LOPERAMIDE2 MG PO (09:25)
[2020-12-14] MEDS ORDERED: DICYCLOMINE HCL10 MG PO (09:26)
== END 2020-12-15 09:00 | DRG 65 ==
LOC: ED 06:26 → MS 15:06
PROVIDERS: ADMIT Internal Medicine; ATTEND Internal Medicine
DX: I63.9 Cerebral infarction, unspecified (principal); G81.94 Hemiplegia, unspecified affecting left nondominant side; L03.113 Cellulitis of right upper limb; Z20.822 Contact with and (suspected) exposure to COVID-19; G43.B0 Ophthalmoplegic migraine, not intractable; R29.702 NIHSS score 2; E78.5 Hyperlipidemia, unspecified; F32.9 Major depressive disorder, single episode, unspecified; Z88.8 Allergy status to other drugs, medicaments and biological substances; Z88.5 Allergy status to narcotic agent; Z79.899 Other long term (current) drug therapy; Z79.82 Long term (current) use of aspirin; Z86.718 Personal history of other venous thrombosis and embolism; Z86.711 Personal history of pulmonary embolism
CPT/HCPCS: 70450; 70496; 70498; 70551; 71045; 80053; 80061; 83036; 85025; 85610; 85730; 92523; 93005; 93010; 93306; 97110; 97112; 97116; 97162; 97165; 97530; 97535; 99285-25; J0696; J1650; J2060; Q9967; U0003